=== PATIENT | female | born 1980 | race Caucasian/White ===

== ENCOUNTER 2020-09-15 12:31 | Emergency (ER) | payer OTHER, SELFPAY ==
--- NOTE | ~2020-09-15 | XR_ITS ---
EXAMINATION: XR hand LT min 3V INDICATION: Left hand pain TECHNIQUE: Three views of the left hand are obtained. 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 No acute fracture, dislocation, or molina bluxation is identified. There is soft tissue swelling of the hand near the first metacarpal. IMPRESSION: 1. No acute osseous abnormality. Reviewed, dictated and finalized at location A. [facility]
[2020-09-15 12:52] VITALS: BP 108/77; PULSE 74; RESP 20; TEMP 36.2; O2SAT 97
--- NOTE | 2020-09-15 13:08 | ED.UPPEXIN ---
HPI - Extremity Injury (Upper) General Chief Complaint: Extremity Injury, Upper Stated Complaint: Hurt left hand Time Seen by Provider: 09/15/20 13:08 Source: patient Mode of arrival: ambulatory Limitations: no limitations History of Present Illness HPI narrative: 39-year-old right-handed woman previously well comes in today complaining of left hand pain that started in the last hour or 2 after she slipped on the ice and fell on her left hand. Patient states she has no numbness or tingling but she has pain with movement of her hands particularly her thumb. She has mild pain with movement of her wrist and no swelling of her wrist. She denies any other injuries and has had no prior left wrist surgery or fractures. complaint: injury to: left and hand Onset (ago): hour(s) (1) Other injuries: none Handedness: right Place: outdoors Severity: moderate Relieving factors: none Exacerbating factors: movement of extremity Context: fall Associated symptoms: denies other symptoms Related Data Allergies Allergy/AdvReac Type Severity Reaction Status Date / Time No Known Allergies Allergy Verified 09/15/20 13:37 Review of Systems Constitutional: Constitutional: Denies weakness Cardiovascular: Cardiovascular: Denies chest pain and Denies radiating jaw, neck or arm pain Gastrointestinal: Gastrointestinal: Denies nausea and Denies vomiting Musculoskeletal: Musculoskeletal: Reports as per HPI, Denies back pain, Reports arthralgias and Reports joint swelling Integumentary/Breasts: Skin/Breast: Denies pruritus, Denies erythema and Denies rash Neurologic: Denies vertigo, Denies dizziness, Denies syncope and Denies headache(s) Hematologic/Lymphatic: Hematologic/Lymphatic: Denies easy bleeding and Denies easy bruising PMF Social History Social History (Updated 09/15/20 @ 13:18 by Corey Pittman MD) Smoking status: Never smoker Gender identity (if verbalized by the patient): Female Exam Const: General: alert Orientation/consciousness: patient oriented x3 Other: Mild distress Resp: Effort & Inspection: normal respiratory effort and not labored Auscultation: clear to auscultation bilaterally, no rales, no rhonchi and no wheezes Cardio: Rate: regular rate Rhythm: regular rhythm Skin: General skin exam: normal color, no jaundice and no pallor Rashes: no rashes Neuro: General: patient oriented x3, moves all extremities, no focal motor deficits and CN's II-XI intact bilaterally Speech: normal speech Gait exam (Neuro): Normal gait present Extrem: General: normal to inspection and no clubbing, cyanosis or edema Other: Tenderness and mild swelling on the left thenar eminence. No tenderness to palpation of the left distal radius and ulna,carpals, snuffbox, remainder of the metacarpals and fingers. Distal neurovascular exam is intact. Psych: Appearance: grossly normal and well kempt Mental Status: mental status grossly normal Affect: normal affect Attitude: cooperative Thought content: Yes Normal thought content present Course Vital Signs Vital signs: Vital Signs Temperature 36.2 C L 09/15/20 12:52 Pulse Rate 74 09/15/20 12:52 Respiratory Rate 20 09/15/20 12:52 Blood Pressure 108/77 09/15/20 12:52 Pulse Oximetry 97 09/15/20 12:52 Temperature 36.2 C L 09/15/20 12:52 Pulse Rate 74 09/15/20 12:52 Respiratory Rate 20 09/15/20 12:52 Blood Pressure 108/77 09/15/20 12:52 Pulse Oximetry 97 09/15/20 12:52 MDM - Extremity Injury (Upper) Imaging Data Radiologist's impression: ITS Impressions Hand X-Ray 09/15/20 13:23 IMPRESSION: 1. No acute osseous abnormality. Discharge Plan Discharge Clinical Impression: Hand injury Qualifiers: Encounter type: initial encounter Laterality: left Qualified Code(s): S69.92XA - Unspecified injury of left wrist, hand and finger(s), initial encounter Patient Disposition: Home, Self-Care Condition: Stable Instructi
[2020-09-15 13:55] VITALS: BP 124/73; PULSE 67; RESP 20; TEMP 36.2; O2SAT 98
== END 2020-09-15 13:59 | disposition home or self-care (01) ==
PROVIDERS: Emergency Provider Emergency Medicine; PCP Internal Medicine
DX: S69.92XA Unspecified injury of left wrist, hand and finger(s), initial encounter (principal); W19.XXXA Unspecified fall, initial encounter
CPT/HCPCS: 73130; 99283

== ENCOUNTER 2022-05-20 13:43 | Emergency (ER) | payer OTHER, SELFPAY ==
--- NOTE | ~2022-05-20 | XR_ITS ---
EXAMINATION: XR hip LT min 2V INDICATION: Left hip pain TECHNIQUE: Two views of the left hip are obtained. COMPARISON: None available FINDINGS: Bone alignment is normal. There is no fracture. There are phleboliths of the right pelvis. IMPRESSION: 1. No acute osseous abnormality. Reviewed, dictated and finalized at location F.
[2022-05-20 14:04] VITALS: BP 141/98; PULSE 68; RESP 20; TEMP 36.4; O2SAT 100
--- NOTE | 2022-05-20 14:18 | ED.BACK ---
HPI - Back Pain/Injury General Chief Complaint: Extremity Injury, Lower Stated Complaint: LEFT LEG AND BACK PAIN STARTED 05/19/2022 Time Seen by Provider: 05/20/22 13:47 Source: patient and RN notes reviewed Mode of arrival: ambulatory Limitations: no limitations History of Present Illness MD elicited complaint: back pain Pertinent past history: other (none) Timing: constant Severity: severe Similar Symptoms Previously: No Quality: burning and aching Location: left lower back Radiation: left upper leg (to the knee) Exacerbating factors: movement and sitting upright Relieving factors: walking Context: other ( No history of any inciting events) Associated symptoms: denies other symptoms Work related injury: No Related Data Allergies Allergy/AdvReac Type Severity Reaction Status Date / Time No Known Allergies Allergy Verified 05/20/22 14:32 Review of Systems Review of Systems: All systems reviewed & are unremarkable except as noted in HPI and below [facility] Social History Social History (Updated 09/15/20 @ 13:18 by Corey Pittman MD) Smoking status: Never smoker Gender identity (if verbalized by the patient): Female Exam Const: General: healthy appearing, alert and ill appearing acutely Nutritional Appearance: well nourished and obese morbidly obese Orientation/consciousness: patient oriented x3 Limitations: no limitations HENMT: Head: normal to inspection Ears: external ears normal Eyes: Conjunctivae: conjunctivae normal Pupils: Equal, round and reactive pupils present EOM: EOMs intact bilaterally Neck: Neck: normal visual inspection Resp: Effort & Inspection: normal respiratory effort Auscultation: clear to auscultation bilaterally Cardio: Rate: regular rate Rhythm: regular rhythm GI: GI Palp: Yes Soft to palpation and No Tenderness to palpation present (GI) Auscultation: normal bowel sounds Back/Spine/Pelvis: Cervical Spine: cervical ROM normal Thoracic/Lumbar Spine: pain with thoraco-lumbar ROM (on the left) and No straight leg raise positive Sacroiliac joints: on the left tender to palpation Skin: General skin exam: normal color Rashes: no rashes Neuro: General: patient oriented x3, moves all extremities, no focal motor deficits and CN's II-XI intact bilaterally Speech: normal speech Gait exam (Neuro): Normal gait present Extrem: General: no clubbing, cyanosis or edema Right lower extremity: hip/thigh Details: normal to inspection and normal ROM; no tenderness Psych: Mental Status: mental status grossly normal Affect: normal affect Attitude: cooperative Course Course Emergency Course: Patient is significantly improved following injection of Toradol 60 mg and Norflex 60 mg. Vital Signs Vital signs: Vital Signs Temperature 36.4 C L 05/20/22 14:04 Pulse Rate 68 05/20/22 14:04 Respiratory Rate 20 05/20/22 14:04 Blood Pressure 141/98 H 05/20/22 14:04 Pulse Oximetry 100 05/20/22 14:04 Oxygen Delivery Room Air 05/20/22 14:04 Temperature 36.4 C L 05/20/22 14:04 Pulse Rate 68 05/20/22 14:04 Respiratory Rate 20 05/20/22 14:04 Blood Pressure 141/98 H 05/20/22 14:04 Pulse Oximetry 100 05/20/22 14:04 Oxygen Delivery Room Air 05/20/22 14:04 Discharge Plan Discharge Clinical Impression: Sciatic leg pain, Hip pain, left Patient Disposition: Home, Self-Care Condition: Improved Instructions: Sciatica (ED) Additional Instructions: call your primary care physician if you want to consider physical therapy. Prescriptions: New nabumetone 750 mg tablet 750 mg PO BID Qty: 20 0RF cyclobenzaprine 10 mg tablet 10 mg PO TID PRN (Reason: muscle spasm) Qty: 10 0RF Follow-up/Referrals: Mackenzie Nix MD [Primary Care Provider] - Time of Disposition: 15:41
[2022-05-20] MEDS: ORPHENADRINE CITRATE 30 MG/ML 2 ML VIAL 60 MG IM (14:24)
[2022-05-20] MEDS: KETOROLAC (*BKC) 60 MG/2 ML VIAL IM (14:24)
[2022-05-20 15:50] VITALS: BP 128/89; PULSE 58; RESP 20; TEMP 36.7; O2SAT 99
== END 2022-05-20 15:52 | disposition home or self-care (01) ==
PROVIDERS: Emergency Provider Emergency Medicine; PCP Internal Medicine
DX: M54.32 Sciatica, left side (principal); M25.552 Pain in left hip
CPT/HCPCS: 73502; 96372; 99284; J1885; J2360